=== PATIENT | male | born 1975 | race Hispanic/Latino ===

== ENCOUNTER 2019-05-19 17:36 | Emergency (ER) | payer OTHER ==
--- NOTE | 2019-05-19 19:10 | XRay Report ---
RIGHT ANKLE 3 VIEWS INDICATION / CLINICAL INFORMATION: swelling, pain. COMPARISON: None available. FINDINGS: No fracture or dislocation is seen within the right ankle. Mild to moderate diffuse soft tissue swell ing is seen along the medial and lateral aspect of the ankle and distal foreleg. Signer Name: Abelardo Peck MD Signed: 05/19/2019 7:05 PM Workstation Name: [id number]
[2019-05-19] MEDS ORDERED: IBUPROFEN 600 MG TAB PO ONE (19:29)
--- NOTE | 2019-05-19 19:29 | Event Note ---
ED Screening Note Date of service: 05/19/19 Time: 19:27 ED Screening Note: 44 y/o male right calf pain is worst. PMH None. Meds none. This initial assessment/diagnostic orders/clinical plan/treatment(s) is/are subject to change based on patients health status, clinical progression and re-assessment by fellow clinical providers in the ED. Further treatment and workup at subsequent clinical providers discretion. Patient/guardian urged not to elope from the ED as their condition may be serious if not clinically assessed and managed. Initial orders include:
[2019-05-19] MEDS ORDERED: HYDROcodone/ACETAMINOPHEN 7.5-325MG TAB PO ONE (22:20)
[2019-05-19] MEDS ORDERED: ONDANSETRON 4 MG ODT TAB PO ONE (22:20)
--- NOTE | 2019-05-19 23:32 | Emergency Department Report ---
ED Lower Extremity HPI - General Chief Complaint: Extremity Injury, Lower Stated Complaint: RT FOOT INJURY Time Seen by Provider: 05/19/19 19:27 Source: patient Mode of arrival: Ambulatory Limitations: No Limitations - History of Present Illness Initial Comments: Patient is a 44-year-old white male with no past medical history who presents to the ED with complaint of acute onset persistent severe right ankle, right foot and right lower leg pain with multiple bruises after he twisted and strained his right leg while playing softball about 3 days ago. Patient states that the pain radiates to the posterior right calf and is worse with ambulation or weightbearing. Patient denies fall, dizziness, nausea, vomiting, chest pain, shortness of breath, abdominal pain, dizziness, syncope, numbness and tingling or weakness of the right leg or low back pain. MD Complaint: leg injury (RIGHT LOWER), ankle injury (RIGHT), foot injury (RIGHT LOWER) -: Sudden, days(s) (3) Injury: Leg: Right (Lower leg), Ankle: Right (right ankle pain), Foot: Right (pain) Type of Injury: eversion Place: street/outdoors Severity: severe Severity scale (0 -10): 7 Improves With: nothing Worsens With: weight bearing, movement, palpation Context: running, jumping Associated Symptoms: able to partially bear weight. denies: numbness, tingling - Related Data Previous Rx's Medication Instructions Recorded Last Taken Type Ibuprofen [Motrin] 800 mg PO Q8HR PRN #30 tablet 05/19/19 Unknown Rx tiZANidine [Zanaflex 4mg TAB] 4 mg PO Q8H PRN #21 tablet 05/19/19 Unknown Rx traMADoL [Ultram] 50 mg PO Q6HR PRN #15 tablet 05/19/19 Unknown Rx Allergies Allergy/AdvReac Type Severity Reaction Status Date / Time No Known Allergies Allergy Verified 05/19/19 17:58 ED Review of Systems ROS: Stated complaint: RT FOOT INJURY Other details as noted in HPI Constitutional: denies: chills, fever Eyes: denies: eye pain, eye discharge, vision change ENT: denies: ear pain, throat pain Respiratory: denies: cough, shortness of breath, wheezing Cardiovascular: denies: chest pain, palpitations Endocrine: no symptoms reported Gastrointestinal: denies: abdominal pain, nausea, vomiting, diarrhea Genitourinary: denies: urgency, dysuria Musculoskeletal: joint swelling (right ankle), arthralgia (right lower leg, right and ankle and foot pain), myalgia. denies: back pain Skin: denies: rash, lesions Neurological: denies: headache, weakness, paresthesias Psychiatric: denies: anxiety, depression Hematological/Lymphatic: denies: easy bleeding, easy bruising ED Past Medical Hx - Social History Smoking Status: Never Smoker Substance Use Type: None - Medications Home Medications: Home Medications Medication Instructions Recorded Confirmed Last Taken Type Ibuprofen [Motrin] 800 mg PO Q8HR PRN #30 tablet 05/19/19 Unknown Rx tiZANidine [Zanaflex 4mg TAB] 4 mg PO Q8H PRN #21 tablet 05/19/19 Unknown Rx traMADoL [Ultram] 50 mg PO Q6HR PRN #15 tablet 05/19/19 Unknown Rx ED Physical Exam - General Limitations: No Limitations General appearance: alert, in no apparent distress - Head Head exam: Present: atraumatic, normocephalic, normal inspection - Eye Eye exam: Present: normal appearance, PERRL, EOMI - ENT ENT exam: Present: normal exam, normal orophraynx, mucous membranes moist, TM's normal bilaterally, normal external ear exam - Neck Neck exam: Present: normal inspection, full ROM - Respiratory Respiratory exam: Present: normal lung sounds bilaterally. Absent: respiratory distress, wheezes, chest wall tenderness - Cardiovascular Cardiovascular Exam: Present: regular rate, normal rhythm, normal heart sounds. Absent: systolic murmur, diastolic murmur, rubs, gallop - GI/Abdominal GI/Abdominal exam: Present: soft, normal bowel sounds. Absent: distended, tenderness, hyperactive bowel sounds, organomegaly - Extremities Exam Extremities exam: Present: normal inspection, full ROM, tenderness (palpable right ankle, right foot and right lower leg tenderness. Positive Kelly test), normal capillary refill, joint swelling (right ankle), calf tenderness (right calf). Absent: pedal edema - Back Exam Back exam: Present: normal inspection, full ROM. Absent: tenderness, muscle spasm, paraspinal tenderness - Neurological Exam Neurological exam: Present: alert, oriented X3, CN II-XII intact, normal gait, reflexes normal - Psychiatric Psychiatric exam: Present: normal affect, normal mood - Skin Skin exam: Present: warm, dry, intact, normal color. Absent: rash ED Course Vital Signs 05/19/19 17:50 Temperature 97.8 F Pulse Rate 66 Respiratory 16 Rate Blood Pressure 141/78 [Left] O2 Sat by Pulse 97 Oximetry ED Lower Extremity MDM - Radiology Data Radiology results: report reviewed, image reviewed Findings [facility] [address] [place] [address] XRay Report Signed Patient: KOBI BARNES MR#: [id number] : 1975 Acct:[id number] Age/Sex: 44 / M ADM Date: 05/19/19 Loc: ED Attending Dr: Ordering Physician: ED MD STELLA Date of Service: 05/19/19 Procedure(s): XR ankle 3+V RT Accession Number(s): [id number] cc: ED MD STELLA Fluoro Time In Minutes: RIGHT ANKLE 3 VIEWS INDICATION / CLINICAL INFORMATION: swelling, pain. COMPARISON: None available. FINDINGS: No fracture or dislocation is seen within the right ankle. Mild to moderate diffuse soft tissue swelling is seen along the medial and lateral aspect of the ankle and distal foreleg. Signer Name: Abelardo Peck MD Signed: 05/19/2019 7:05 PM Workstation Name: [id number] Transcribed By: TL Dictated By: Abelardo Peck MD Electronically Authenticated By: Abelardo Peck MD Signed Date/Time: 05/19/191904 DD/ 04 - Medical Decision Making This is a 44-year-old white male who presented to the ED with component of right ankle, right foot and right lower leg pain after injury during softball practice in 3 days ago. The patient is unable to perform limited range of motion adequately and Kelly test is positive, suspicious for Achilles tendon rupture or tear. Right ankle x-ray showed no acute fractures or subluxations or soft tissue swelling in the distal right lower leg and right ankle. In the ED, patient is alert and oriented 3 and is not in distress but appears pink pain. Patient was treated for pain in the ED and right ankle splint and Tevin wrap. Patient was discharged home on pain medications and muscle relaxants and is given a referral to the orthopedic surgeon robotics application engineer Dr. Lindquist for further evaluation. Patient was advised to contact Lexa's office first thing in the morning on Tuesday05/21/2019 to schedule an appointment. Patient was advised to return to the ED immediately if symptoms get worse. - Differential Diagnosis Achilles tendon rupture; Ankle fracture; Muscle strain; Muscle spasm Critical care attestation.: If time is entered above; I have spent that time in minutes in the direct care of this critically ill patient, excluding procedure time. ED Disposition Clinical Impression: Severe sprain of right ankle Qualifiers: Encounter type: initial encounter Qualified Code(s): S93.401A - Sprain of unspecified ligament of right ankle, initial encounter Achilles tendon rupture Qualifiers: Encounter type: initial encounter Laterality: right Qualified Code(s): S86.011A - Strain of right Achilles tendon, initial encounter Muscle strain of right lower extremity Qualifiers: Encounter type: initial encounter Qualified Code(s): S86.911A - Strain of unspe cified muscle(s) and tendon(s) at lower leg level, right leg, initial encounter Disposition: TO HOME OR SELFCARE Is pt being admited?: No Does the pt Need Aspirin: No Condition: Stable Instructions: Muscle Strain (ED), Ankle Sprain (ED), Achilles Tendon Rupture (ED), Musculoskeletal Pain (ED) Additional Instructions: Take medications, drink plenty of fluids and follow up with the orthopedic surgeon robotics application engineer Dr. Lindquist for further reevaluation. Contact Dr. Lindquist's office first thing on Tuesday05/21/2019 2 schedule a follow-up appointment for reevaluation. Return to the ED immediately if symptoms get worse. Prescriptions: Ibuprofen [Motrin] 800 mg PO Q8HR PRN #30 tablet PRN Reason: Pain , Severe (7-10) traMADoL [Ultram] 50 mg PO Q6HR PRN #15 tablet PRN Reason: Pain tiZANidine [Zanaflex 4mg TAB] 4 mg PO Q8H PRN #21 tablet PRN Reason: Muscle Spasm Referrals: ALFIE LINDQUIST MD [Staff Physician] - [facility] Time of Disposition: 23:45 Print Language: TRISTANIAN
[2019-05-20 00:25] VITALS: BP 121/83
== END 2019-05-20 00:24 | disposition home or self-care (01) ==
LOC: ED 17:36
DX: S93.401A Sprain of unspecified ligament of right ankle, initial encounter (principal); S86.011A Strain of right Achilles tendon, initial encounter; S86.911A Strain of unspecified muscle(s) and tendon(s) at lower leg level, right leg, initial encounter; X58.XXXA Exposure to other specified factors, initial encounter; Y93.89 Activity, other specified; Y92.89 Other specified places as the place of occurrence of the external cause; Y99.8 Other external cause status
CPT/HCPCS: Q0162